=== PATIENT | male | born 1950 | race Caucasian/White ===

== ENCOUNTER → 2019-10-03 | Outpatient (CLI) | payer OTHER ==
[~2019-10-03] MED LIST: ASPIRIN325 PO; CIPROFLOXACIN500 M3 PO; COLACE 100 MG100 MG PO; EFFIENT10 MG PO; EXCEDRIN PM PO; IBUPROFEN 200200 M1 PO; LIPITOR40 MG PO; NITROSTAT0.4 MG SL; TOPROL XL25 MG PO
== END ==
LOC: SJCVC 14:24
DX: I25.10 Atherosclerotic heart disease of native coronary artery without angina pectoris (principal); I10 Essential (primary) hypertension; E78.00 Pure hypercholesterolemia, unspecified; Z79.82 Long term (current) use of aspirin; Z79.84 Long term (current) use of oral hypoglycemic drugs; Z79.899 Other long term (current) drug therapy

== ENCOUNTER → 2019-12-05 | Outpatient (CLI) | payer OTHER | LOC: SJCVCIMAG 11:27 | DX: I65.23 Occlusion and stenosis of bilateral carotid arteries (principal); I08.1 Rheumatic disorders of both mitral and tricuspid valves; I25.10 Atherosclerotic heart disease of native coronary artery without angina pectoris; I10 Essential (primary) hypertension; E78.5 Hyperlipidemia, unspecified; Z98.61 Coronary angioplasty status ==

== ENCOUNTER → 2020-08-09 | Outpatient (CLI) | payer OTHER | LOC: SJCVC 10:12 | PROVIDERS: ATTEND Internal Medicine Cardiovascular Disease | DX: R94.31 Abnormal electrocardiogram [ECG] [EKG] (principal); I25.10 Atherosclerotic heart disease of native coronary artery without angina pectoris; I25.2 Old myocardial infarction; I10 Essential (primary) hypertension; I65.23 Occlusion and stenosis of bilateral carotid arteries; I38 Endocarditis, valve unspecified; E78.00 Pure hypercholesterolemia, unspecified ==

== ENCOUNTER → 2021-04-21 | Outpatient (CLI) | payer OTHER | LOC: SJCVC 13:11 | PROVIDERS: ATTEND Internal Medicine Cardiovascular Disease | DX: R94.31 Abnormal electrocardiogram [ECG] [EKG] (principal); I44.7 Left bundle-branch block, unspecified; I25.10 Atherosclerotic heart disease of native coronary artery without angina pectoris; I10 Essential (primary) hypertension; E78.00 Pure hypercholesterolemia, unspecified; I65.23 Occlusion and stenosis of bilateral carotid arteries; R07.89 Other chest pain; R68.89 Other general symptoms and signs; Z98.890 Other specified postprocedural states; Z95.5 Presence of coronary angioplasty implant and graft; Z79.82 Long term (current) use of aspirin; Z79.899 Other long term (current) drug therapy; Z82.49 Family history of ischemic heart disease and other diseases of the circulatory system ==

== ENCOUNTER → 2021-07-07 | Outpatient (CLI) | payer OTHER | LOC: SJCVCIMAG 10:43 | PROVIDERS: ATTEND Internal Medicine Cardiovascular Disease | DX: I34.0 Nonrheumatic mitral (valve) insufficiency (principal); I25.10 Atherosclerotic heart disease of native coronary artery without angina pectoris; Z95.5 Presence of coronary angioplasty implant and graft ==